=== PATIENT | male | born 1980 | race Caucasian/White ===

== ENCOUNTER 2019-08-03 00:04 | Emergency (ER) | payer SELFPAY ==
[~2019-08-03] VITALS: Ht 182.8 cm; Wt 102.1 kg
[~2019-08-03 00:04] MED LIST: LISINOPRIL AND1 TA2 PO; NORVASC10 MG PO; PAXIL30 M2 PO; XANAX0.5 MG PO; ZOFRAN ODT4 MG SL
[2019-08-03] MEDS ORDERED: CLARITHROMYCIN500 MG PO (00:54)
== END 2019-08-03 01:41 | disposition home or self-care (01) ==
LOC: ED 00:04
DX: J01.01 Acute recurrent maxillary sinusitis (principal); Z20.828 Contact with and (suspected) exposure to other viral communicable diseases; Z79.899 Other long term (current) drug therapy

== ENCOUNTER 2023-02-26 17:45 | Emergency (ER) | payer OTHER ==
[~2023-02-26 17:45] MED LIST changes: +CLARITHROMYCIN500 MG PO
[2023-02-28 05:06] LABS: HEPATITIS B SURFACE AB Reactive (.)
== END 2023-02-26 18:12 | disposition home or self-care (01) ==
LOC: ED 17:45
PROVIDERS: Emergency Medicine
DX: S69.92XA Unspecified injury of left wrist, hand and finger(s), initial encounter (principal); I10 Essential (primary) hypertension; F32.A Depression, unspecified; F41.9 Anxiety disorder, unspecified; F19.10 Other psychoactive substance abuse, uncomplicated; W46.0XXA Contact with hypodermic needle, initial encounter; Y93.89 Activity, other specified; Y92.239 Unspecified place in hospital as the place of occurrence of the external cause; Y99.0 Civilian activity done for income or pay

== ENCOUNTER 2023-06-02 10:21 | Emergency (ER) | payer OTHER ==
[~2023-06-02] VITALS: Ht 182.8 cm; Wt 111.1 kg
[2023-06-02] MEDS ORDERED: Ondansetron Hydrochloride 4 MG/2 ML VIAL IV ONE (10:25)
[2023-06-02] MEDS ORDERED: ONDANSETRON4 MG SL (14:43)
== END 2023-06-02 14:50 | disposition home or self-care (01) ==
LOC: ED 10:21
DX: S06.0X0A Concussion without loss of consciousness, initial encounter (principal); I10 Essential (primary) hypertension; F32.A Depression, unspecified; F41.9 Anxiety disorder, unspecified; W20.8XXA Other cause of strike by thrown, projected or falling object, initial encounter; Y93.89 Activity, other specified; Y92.009 Unspecified place in unspecified non-institutional (private) residence as the place of occurrence of the external cause; Y99.8 Other external cause status

== ENCOUNTER 2025-01-29 12:55 | Emergency (ER) | payer OTHER ==
[~2025-01-29] VITALS: Ht 185.4 cm; Wt 104.3 kg
[~2025-01-29 12:55] MED LIST changes: +ONDANSETRON4 MG SL
[2025-01-29] MEDS ORDERED: VALSARTAN320 MG PO (13:05)
[2025-01-29] MEDS ORDERED: CYCLOBENZAPRINE10 MG PO (14:51)
[2025-01-29] MEDS ORDERED: MEDROL DOSEPAK4 MG PO (14:51)
== END 2025-01-29 14:59 | disposition home or self-care (01) ==
LOC: ED 12:55
DX: S43.402A Unspecified sprain of left shoulder joint, initial encounter (principal); M54.50 Low back pain, unspecified; I10 Essential (primary) hypertension; F32.A Depression, unspecified; F41.9 Anxiety disorder, unspecified; V89.2XXA Person injured in unspecified motor-vehicle accident, traffic, initial encounter; Y93.89 Activity, other specified; Y92.410 Unspecified street and highway as the place of occurrence of the external cause; Y99.8 Other external cause status